=== PATIENT | female | born 1950 | race Caucasian/White ===

== ENCOUNTER 2024-08-31 09:26 | Inpatient (IN) ==
[2024-08-31] MEDS ORDERED: ONDANSETRON 4 MG/2 ML VIAL IV PRN (10:50)
[2024-08-31] MEDS: 0.9 % SODIUM CHLORIDE 1,000 ML IV SCH (11:14)
[2024-08-31] MEDS: METOCLOPRAMIDE 10 MG/2 ML VIAL IV SCH (11:14)
[2024-08-31] MEDS: HYDROmorphone 0.5 MG/0.5 ML SYRINGE IV PRN (11:47)
[2024-08-31 11:52] LABS: ALT/SGPT < 5 U/L (<40); AST/SGOT 31 U/L (<32); Albumin 3.4 gm/dL (3.2-5.2); Albumin/Globulin Ratio 1.1 (1.0-2.3); Alkaline Phosphatase 116 U/L (39-117); Bilirubin,Direct 0.7 mg/dL (<0.3); Bilirubin,Total 1.1 mg/dL (0.1-1.0); Blood Urea Nitrogen 19 mg/dL (8-23); Calcium 9.2 mg/dL (8.6-10.4); Carbon Dioxide 21 mmol/L (22-30); Chloride 91 mmol/L (96-108); Globulin 3.1 gm/dL (2.2-3.7); Glomerular Filtration Rate 85; Glucose 72 mg/dL (70-105); Lactate Dehydrogenase 159 U/L (135-225); Phosphorous 2.8 mg/dL (2.5-4.5); Potassium 4.4 mmol/L (3.3-5.1); Sodium 129 mmol/L (133-145); Triglycerides 90 mg/dL (<150); Uric Acid 2.9 mg/dL (2.5-8.0)
[2024-08-31 12:46] LABS: Estimated Average Glucose(eAG) 117 mg/dL; Hemoglobin A1C 5.7 % Hgb (4.0-6.0)
[2024-08-31 14:12] LABS: Appearance,Urine Clear (Clear); Bacteria,Urine Many /hpf (0); Bilirubin,Urine Small mg/dL (Negative); Calcium Oxalate Crystals,Urine Few /hpf; Color,Urine Yellow; Glucose,Urine (UA) Negative (Negative); Ketones,Urine 40(2+) mg/dL (Negative); Leukocyte Esterase,Urine Negative /uL (Negative); Nitrate,Urine Negative (Negative); Protein,Urine 100 mg/dL (Negative); Specific Gravity,Urine >= 1.030 (1.000-1.035); Urine Blood Negative ery/mcL (Negative); Urine RBC 0 /hpf (0-3); Urine Squamous Epithelial Cell 6 /hpf (0-4); Urine WBC 2 /hpf (0-4); Urobilinogen,Urine Normal
[2024-08-31] MEDS: 0.9 % SODIUM CHLORIDE 10 ML SYRINGE IV SCH (14:15)
[2024-08-31] MEDS: PANTOPRAZOLE 40 MG VIAL IV SCH (17:45)
[2024-08-31] MEDS: PREGABALIN 75 MG CAPSULE PO SCH (20:05)
[2024-08-31] MEDS: PRAMIPEXOLE 0.25 MG TABLET PO SCH (20:05)
[2024-08-31] MEDS: CARBIDOPA/LEVODOPA CR 25/100 TABLET PO SCH (20:05)
[2024-09-01 06:04] LABS: Basophils # (Auto) 0.01 K/mcL (0.00-0.30); Basophils % (Auto) 0.2 % (0.0-2.0); Eosinophils # (Auto) 0.02 K/mcL (0.00-0.70); Eosinophils % (Auto) 0.3 % (0.0-7.0); Hematocrit 32.6 % (34.1-44.9); Hemoglobin 10.7 g/dL (11.2-15.7); Lymphocytes # (Auto) 0.82 K/mcL (1.50-4.80); Mean Cell Volume 86.9 fL (80.0-100.0); Mean Corpuscular HGB Conc 32.8 g/dL (31.0-36.0); Mean Platelet Volume 10.8 fL (8.8-12.5); Monocytes # (Auto) 0.57 K/mcL (0.10-0.90); Monocytes % (Auto) 9.7 % (1.0-12.0); Neutrophils % (Auto) 75.6 % (38.0-78.0); Platelet Count 227 K/mcL (140-440); RBC 3.75 M/mcL (3.59-5.38); Red Cell Distribution Width 13.8 % (11.5-14.5); WBC 5.9 K/mcL (4.5-11.0)
[2024-09-01] MEDS: LEVOTHYROXINE 125 MCG TABLET PO SCH (06:54)
[2024-09-01] MEDS: buPROPion 150 MG TAB.XL.24H PO SCH (10:11)
[2024-09-01] MEDS: LIOTHYRONINE 5 MCG TABLET PO SCH (10:11)
[2024-09-02] MEDS ORDERED: GLYCOPYRROLATE 0.2 MG/ML VIAL IV ONE (14:19)
[2024-09-02] MEDS ORDERED: LIDOCAINE 2% PF 5 ML VIAL IJ ONE (14:19)
[2024-09-02] MEDS ORDERED: PROPOFOL 200 MG/20 ML VIAL IV ONE (14:19)
[2024-09-03 17:12] LABS: Basophils # (Auto) 0.01 K/mcL (0.00-0.30); Basophils % (Auto) 0.2 % (0.0-2.0); Eosinophils # (Auto) 0.01 K/mcL (0.00-0.70); Eosinophils % (Auto) 0.2 % (0.0-7.0); Hemoglobin 9.9 g/dL (11.2-15.7); Lymphocytes # (Auto) 0.64 K/mcL (1.50-4.80); Lymphocytes % (Auto) 10.8 % (15.5-49.0); Mean Platelet Volume 9.8 fL (8.8-12.5); Monocytes # (Auto) 0.47 K/mcL (0.10-0.90); Monocytes % (Auto) 7.9 % (1.0-12.0); Neutrophils % (Auto) 80.6 % (38.0-78.0); Platelet Count 196 K/mcL (140-440); RBC 3.53 M/mcL (3.59-5.38); Red Cell Distribution Width 14.5 % (11.5-14.5); WBC 5.9 K/mcL (4.5-11.0)
[2024-09-03 17:23] LABS: ALT/SGPT < 5 U/L (<40); AST/SGOT 26 U/L (<32); Albumin 2.9 gm/dL (3.2-5.2); Albumin/Globulin Ratio 1.3 (1.0-2.3); Alkaline Phosphatase 94 U/L (39-117); Bilirubin,Direct 0.4 mg/dL (<0.3); Bilirubin,Total 0.6 mg/dL (0.1-1.0); Blood Urea Nitrogen 7 mg/dL (8-23); Calcium 8.1 mg/dL (8.6-10.4); Carbon Dioxide 19 mmol/L (22-30); Chloride 101 mmol/L (96-108); Globulin 2.3 gm/dL (2.2-3.7); Glomerular Filtration Rate 90; Glucose 99 mg/dL (70-105); Lactate Dehydrogenase 154 U/L (135-225); Phosphorous 1.2 mg/dL (2.5-4.5); Potassium 3.3 mmol/L (3.3-5.1); Sodium 134 mmol/L (133-145); Triglycerides 88 mg/dL (<150); Uric Acid 2.5 mg/dL (2.5-8.0)
[2024-09-03] MEDS: POTASSIUM PHOSPHATE 66 MEQ/15 ML VIAL IV ONE (18:19)
[2024-09-03] MEDS: POTASSIUM PHOSPHATE 40 MEQ in 0.9 % SODIUM CHLORIDE 500 ML IV SCH (18:25)
[2024-09-03] MEDS: MAGNESIUM SULFATE 2 GM/50 ML BAG IV SCH (18:27)
[2024-09-04 06:54] LABS: Basophils # (Auto) 0.01 K/mcL (0.00-0.30); Basophils % (Auto) 0.2 % (0.0-2.0); Eosinophils # (Auto) 0.21 K/mcL (0.00-0.70); Eosinophils % (Auto) 4.1 % (0.0-7.0); Hematocrit 27.1 % (34.1-44.9); Hemoglobin 9.1 g/dL (11.2-15.7); Lymphocytes % (Auto) 13.5 % (15.5-49.0); Mean Corpuscular HGB Conc 33.6 g/dL (31.0-36.0); Mean Platelet Volume 10.6 fL (8.8-12.5); Monocytes # (Auto) 0.42 K/mcL (0.10-0.90); Monocytes % (Auto) 8.1 % (1.0-12.0); Neutrophils % (Auto) 74.1 % (38.0-78.0); Platelet Count 183 K/mcL (140-440); RBC 3.19 M/mcL (3.59-5.38); Red Cell Distribution Width 14.5 % (11.5-14.5); WBC 5.2 K/mcL (4.5-11.0)
[2024-09-04 07:14] LABS: ALT/SGPT < 5 U/L (<40); AST/SGOT 19 U/L (<32); Albumin 2.6 gm/dL (3.2-5.2); Albumin/Globulin Ratio 1.2 (1.0-2.3); Alkaline Phosphatase 81 U/L (39-117); Bilirubin,Direct 0.4 mg/dL (<0.3); Bilirubin,Total 0.7 mg/dL (0.1-1.0); Blood Urea Nitrogen 4 mg/dL (8-23); Calcium 7.6 mg/dL (8.6-10.4); Carbon Dioxide 23 mmol/L (22-30); Chloride 102 mmol/L (96-108); Globulin 2.1 gm/dL (2.2-3.7); Glomerular Filtration Rate 90; Glucose 75 mg/dL (70-105); Lactate Dehydrogenase 134 U/L (135-225); Phosphorous 2.3 mg/dL (2.5-4.5); Potassium 3.3 mmol/L (3.3-5.1); Sodium 135 mmol/L (133-145); Triglycerides 67 mg/dL (<150); Uric Acid 2.4 mg/dL (2.5-8.0)
[2024-09-04] MEDS: POTASSIUM PHOSPHATE 40 MEQ in 0.9 % SODIUM CHLORIDE 500 ML IV SCH (08:15)
[2024-09-04] MEDS: CALCIUM GLUCONATE 4.65 MEQ in DEXTROSE 5% IN WATER 50 ML IV SCH ×2 (10:29→18:13)
[2024-09-04] MEDS: METHOCARBAMOL 500 MG TABLET PO SCH (12:45)
[2024-09-04 16:29] LABS: Phosphorous 3.1 mg/dL (2.5-4.5)
[2024-09-04] MEDS: CALCIUM GLUCONATE 4.65 MEQ/10 ML VIAL ONE ×2 (18:06→19:17)
[2024-09-04] MEDS: METHOCARBAMOL 500 MG TABLET PO PRN (18:13)
[2024-09-05 06:01] LABS: Hematocrit 27.4 % (34.1-44.9); Hemoglobin 9.1 g/dL (11.2-15.7)
[2024-09-05 06:29] LABS: ALT/SGPT < 5 U/L (<40); AST/SGOT 17 U/L (<32); Albumin 2.6 gm/dL (3.2-5.2); Albumin/Globulin Ratio 1.2 (1.0-2.3); Alkaline Phosphatase 81 U/L (39-117); Bilirubin,Direct 0.4 mg/dL (<0.3); Bilirubin,Total 0.7 mg/dL (0.1-1.0); Blood Urea Nitrogen 4 mg/dL (8-23); Calcium 7.8 mg/dL (8.6-10.4); Carbon Dioxide 22 mmol/L (22-30); Chloride 103 mmol/L (96-108); Globulin 2.2 gm/dL (2.2-3.7); Glomerular Filtration Rate 95; Glucose 76 mg/dL (70-105); Lactate Dehydrogenase 161 U/L (135-225); Phosphorous 2.8 mg/dL (2.5-4.5); Potassium 3.4 mmol/L (3.3-5.1); Sodium 136 mmol/L (133-145); Triglycerides 63 mg/dL (<150); Uric Acid 2.1 mg/dL (2.5-8.0)
[2024-09-05] MEDS: CALCIUM GLUCONATE 4.65 MEQ/10 ML VIAL IV ONE (08:28)
[2024-09-05] MEDS: CALCIUM GLUCONATE 4.65 MEQ in DEXTROSE 5% IN WATER 50 ML IV SCH (10:20)
[2024-09-05] MEDS ORDERED: METOCLOPRAMIDE 10 MG/2 ML VIAL IV SCH (12:00)
[2024-09-05] MEDS: METOCLOPRAMIDE 10 MG TABLET PO SCH (17:16)
[2024-09-05] MEDS: PANTOPRAZOLE 40 MG TABLET PO SCH (17:16)
[2024-09-06 11:01] VITALS: O2SAT 97
[2024-09-06 16:47] VITALS: TEMP 97.8
== END 2024-09-06 16:36 | disposition home or self-care (01) | DRG 392 ==
LOC: MEDSUR 09:50
PROVIDERS: ADMIT Family Medicine Adult Medicine; ATTEND Family Medicine Adult Medicine